=== PATIENT | female | born 1985 | race Two or more races ===

== ENCOUNTER 2023-08-13 07:30 | Day surgery (SDC) | payer OTHER ==
[~2023-08-13] VITALS: Ht 167.6 cm; Wt 61.2 kg
[2023-08-13] MEDS ORDERED: POVIDONE-IODINE 118 ML BOTT TOP ONE ×2 (09:45→10:30)
[2023-08-13] MEDS ORDERED: PERCOCET 5-3251 EACH PO (11:05)
== END 2023-08-13 13:50 | disposition home or self-care (01) ==
LOC: CIR.AMB 07:30
PROVIDERS: ATTEND Obstetrics & Gynecology Gynecology
DX: Z30.2 Encounter for sterilization (principal); Z88.0 Allergy status to penicillin

== ENCOUNTER 2025-01-16 12:18 | Inpatient (IN) | payer OTHER ==
[~2025-01-16] VITALS: Ht 182.9 cm; Wt 60.8 kg
[~2025-01-16 12:18] MED LIST: PERCOCET 5-3251 EACH PO
[2025-01-16] MEDS ORDERED: LAMICTAL200 MG PO (12:51)
[2025-01-16] MEDS ORDERED: WELLBUTRIN XL150 M1 PO (12:52)
[2025-01-16 13:54] LABS: RH POSITIVE
[2025-01-26] MEDS ORDERED: POVIDONE-IODINE 118 ML BOTT TOP ONE (11:30)
[2025-01-26] MEDS ORDERED: METRONIDAZOLE/SODIUM CHLORIDE 500 MG/100 ML PIGGYBACK IV ONE (11:30)
[2025-01-26] MEDS ORDERED: DIPHENHYDRAMINE HCL 50 MG/ML VIAL 1ML IV ONE (11:30)
[2025-01-26] MEDS ORDERED: ONDANSETRON HCL 2 MG/ML VIAL IV PRN (14:30)
[2025-01-26] MEDS ORDERED: RINGERS SOLUTION,LACTATED 1,000 ML IV SCH (14:30)
[2025-01-26] MEDS ORDERED: MORPHINE SULFATE 4 MG/ML VIAL IV ONE (15:45)
[2025-01-26 16:07] LABS: BASO % 0.6 % (0.1-1.2); EOS # 0.06 (0.04-0.54); EOS % 0.7 % (0.7-7.0); LYMPH # 1.10 (1.18-3.74); LYMPH % 12.4 % (19.3-53.1); MEAN PLATELET VOLUME 9.30 fl (9.4-12.4); MONO # 0.71 (0.24-0.82); MONO % 8.0 % (4.7-12.5); NEUT # 6.93 (1.56-6.13); NEUT % 78.1 % (34.0-71.1); RED CELL DISTRIBUTION WIDTH 14.6 % (11.6-14.4)
[2025-01-26] MEDS ORDERED: METRONIDAZOLE/SODIUM CHLORIDE 500 MG/100 ML PIGGYBACK IV SCH (17:00)
[2025-01-26 17:22] VITALS: BP 123/76
[2025-01-26] MEDS ORDERED: MORPHINE SULFATE 4 MG/ML VIAL IV SCH (18:00)
[2025-01-26] MEDS ORDERED: ENALAPRILAT DIHYDRATE 1.25 MG/ML VIAL IV PRN (20:30)
[2025-01-27] VITALS: BP 145/85
[2025-01-27] MEDS ORDERED: MIRALAX17 GM PO (06:44)
[2025-01-27] MEDS ORDERED: ACETAMINOPHEN500 M2 PO (06:44)
[2025-01-27] MEDS ORDERED: NEURONTIN300 MG PO (06:45)
[2025-01-27] MEDS ORDERED: SIMETHICONE80 MG PO (06:46)
[2025-01-27 08:29] VITALS: BP 114/71; O2SAT 98
[2025-01-27] MEDS ORDERED: ENOXAPARIN SODIUM 40 MG/0.4 ML SYRINGE SUBCUTANEO SCH (09:00)
== END 2025-01-27 09:29 | disposition home or self-care (01) | DRG 743 ==
LOC: O/R 01-26 09:00 → OB/GYN 01-26 12:45
PROVIDERS: ADMIT Obstetrics & Gynecology Gynecology; ATTEND Obstetrics & Gynecology Gynecology
PROC: 0UT94ZZ Resection of Uterus, Percutaneous Endoscopic Approach (ICD-10-PCS; principal; 2025-01-26 13:00)
DX: N80.03 Adenomyosis of the uterus (principal); N72 Inflammatory disease of cervix uteri; R10.2 Pelvic and perineal pain

== ENCOUNTER 2025-02-05 06:53 | Emergency (ER) | payer OTHER ==
[~2025-02-05] VITALS: Ht 167.6 cm; Wt 61.2 kg
[~2025-02-05 06:53] MED LIST changes: +ACETAMINOPHEN500 M2 PO; +LAMICTAL200 MG PO; +MIRALAX17 GM PO; +NEURONTIN300 MG PO; +SIMETHICONE80 MG PO; +WELLBUTRIN XL150 M1 PO
[2025-02-05] MEDS ORDERED: BUPROPION HCL150 M1 PO (07:44)
[2025-02-05] MEDS ORDERED: 0.9 % SODIUM CHLORIDE 1,000 ML IV STA (08:25)
[2025-02-05 09:03] LABS: BASO % 1.2 % (0.1-1.2); EOS # 0.12 (0.04-0.54); EOS % 1.9 % (0.7-7.0); LYMPH # 1.43 (1.18-3.74); LYMPH % 22.1 % (19.3-53.1); MEAN PLATELET VOLUME 9.60 fl (9.4-12.4); MONO # 0.56 (0.24-0.82); MONO % 8.7 % (4.7-12.5); NEUT # 4.26 (1.56-6.13); NEUT % 65.9 % (34.0-71.1); RED CELL DISTRIBUTION WIDTH 14.5 % (11.6-14.4)
[2025-02-05 12:08] LABS: URINE APPEARANCE Clear; URINE BILIRRUBIN Negative (NEGATIVE); URINE BLOOD Moderate; URINE COLOR Yellow; URINE GLUCOSE Negative (NEGATIVE); URINE KETONE Negative (NEGATIVE); URINE LEUKOCYTE Negative; URINE NITRATE Negative; URINE PROTEIN Negative (NEGATIVE); URINE UROBILINOGEN 0.2 E.U./dl
[2025-02-05 12:13] LABS: URINE BACTERIA 249.6 uL (0.0-1933); URINE EPITHELIAL CELLS 7.8 uL (0.0-38.8); URINE RBC 36.9 uL (0.0-20.8); URINE WBC 10.7 uL (0.0-23.2)
[2025-02-05 12:20] LABS: URINE CAST 0.00 uL (0.0-1.40)
== END 2025-02-05 18:53 | disposition home or self-care (01) ==
LOC: ER 06:53
PROVIDERS: Emergency Medicine
DX: N93.8 Other specified abnormal uterine and vaginal bleeding (principal); Z88.0 Allergy status to penicillin; Z88.6 Allergy status to analgesic agent